=== PATIENT | male | born 1995 | race Caucasian/White ===

== ENCOUNTER 2021-12-12 19:03 | Emergency (ER) | payer OTHER ==
[~2021-12-12] VITALS: Ht 182.9 cm; Wt 80.3 kg
[2021-12-12] MEDS ORDERED: CIPRO500 MG PO (23:18)
[2021-12-12] MEDS ORDERED: ZOFRAN8 MG PO (23:18)
[2021-12-12] MEDS ORDERED: PEPCID AC20 MG PO (23:18)
== END 2021-12-12 23:27 | disposition home or self-care (01) ==
LOC: ER 19:03
DX: K52.9 Noninfective gastroenteritis and colitis, unspecified (principal); Z91.013 Allergy to seafood